=== PATIENT | male | born 1995 | race Caucasian/White ===

== ENCOUNTER 2025-04-06 20:16 | Emergency (ER) | payer OTHER ==
[~2025-04-06] VITALS: Ht 182.9 cm; Wt 86.0 kg
[2025-04-06 20:18] VITALS: O2SAT 98
[2025-04-06 20:39] VITALS: BP 157/93; PULSE 98; RESP 12; TEMP 37.4; O2SAT 100
[2025-04-06] MEDS: LORAZEPAM 2MG/ML UD SYRINGE IV SCH (21:00)
[2025-04-06] MEDS: SODIUM CHLORIDE 0.9% 1,000 ML IV ONE (21:42)
[2025-04-06] MEDS: LEVETIRACETAM 500MG PREMIX 100 ML IV ONE (21:42)
== END 2025-04-06 21:33 | disposition left against medical advice (07) ==
LOC: ER 20:48 → CMPBEDREQ 04-07 07:46
DX: R56.9 Unspecified convulsions (principal)
CPT/HCPCS: 93005; 99283; Z7610; 80305; 81003; J2060; J7030